=== PATIENT | female | born 1990 | race Caucasian/White ===

== ENCOUNTER 2016-08-28 20:53 | Emergency (ER) | payer OTHER ==
[~2016-08-28] VITALS: Ht 167.6 cm; Wt 59.0 kg
[2016-08-28 20:58] VITALS: BP 133/83
[2016-08-28] MEDS ORDERED: ACETAMINOPHEN ES 500 MG TABLET ONE (21:08)
[2016-08-28] MEDS ORDERED: AMOX/CLAVULANATE 875 MG TABLET ONE (21:08)
[2016-08-28] MEDS ORDERED: ACETAMINOPHEN ES 500 MG TABLET PO ONE (21:30)
[2016-08-28] MEDS ORDERED: AMOX/CLAVULANATE 875 MG TABLET PO ONE (21:30)
== END 2016-08-28 21:19 | disposition home or self-care (01) ==
LOC: ER 20:57
DX: S61.452A Open bite of left hand, initial encounter (principal); W54.0XXA Bitten by dog, initial encounter; Y93.89 Activity, other specified; Y92.89 Other specified places as the place of occurrence of the external cause; Y99.9 Unspecified external cause status
CPT/HCPCS: 29130; 99283; A4606; A6402; Z7610

== ENCOUNTER → 2016-08-29 | Emergency (ER) | payer OTHER ==
[~2016-08-29] VITALS: Ht 167.6 cm; Wt 59.0 kg
[~2016-08-29] MED LIST: TDAP [DIPH/PERTUSSIS/TET] 0.5 ML VIAL IM ONE
[2016-08-29 14:56] VITALS: BP 118/79
== END | disposition home or self-care (01) ==
LOC: ER 14:48
DX: S61.452A Open bite of left hand, initial encounter (principal); W54.0XXA Bitten by dog, initial encounter; Y93.89 Activity, other specified; Y92.89 Other specified places as the place of occurrence of the external cause; Y99.8 Other external cause status
CPT/HCPCS: 90471; 90715; 99283; A4606; Z7610